=== PATIENT | female | born 1950 | race Caucasian/White ===

== ENCOUNTER 2018-01-18 09:47 | Day surgery (SDC) | payer BC ==
[2018-01-13 14:24] LABS: BASOPHILS # (AUTO) 0.1 X10'3 (0-0.2); BASOPHILS % (AUTO) 1.3 % (0-1); EOSINOPHILS # (AUTO) 0.2 X10'3 (0-0.9); HEMATOCRIT 39.2 % (35.0-45.0); HEMOGLOBIN 13.6 g/dl (12.0-16.0); LYMPHOCYTES # (AUTO) 1.5 X10'3 (1.1-4.8); MEAN CORPUSCULAR HEMOGLOBIN 33.6 PG (27.0-31.0); MEAN CORPUSCULAR HGB CONC 34.6 % (33.0-36.5); MEAN CORPUSCULAR VOLUME 97.2 FL (78-98); MEAN PLATELET VOLUME 8.2 FL (7.4-10.4); MONOCYTES # (AUTO) 0.7 X10'3 (0-0.9); MONOCYTES % (AUTO) 8.3 % (2-12); NEUTROPHILS # (AUTO) 5.6 X10'3 (1.8-7.7); NEUTROPHILS % (AUTO) 69.4 % (42-75); PLATELET COUNT 290 X10'3 (140-440); RED BLOOD COUNT 4.03 X10'6 (4.20-5.60); RED CELL DISTRIBUTION WIDTH 13.8 % (11.5-14.5); WHITE BLOOD COUNT 8.1 X10'3 (4.5-11.0)
[2018-01-13 14:31] LABS: ALBUMIN 3.8 G/DL (3.4-5.0); ANION GAP 8 (8-16); BLOOD UREA NITROGEN 23 MG/DL (7-18); BUN/CREATININE RATIO 16.2 (6.6-38.0); CALCIUM 9.1 MG/DL (8.5-10.1); CHLORIDE 100 MMOL/L (99-107); CREATININE 1.42 MG/DL (0.40-0.90); GLUCOSE 126 MG/DL (70-104); SODIUM 138 MMOL/L (135-145); TOTAL CARBON DIOXIDE 30.5 MMOL/L (24-32); eGFR 37 ML/MIN
[2018-01-13 14:32] LABS: INR 1.2 INR; PARTIAL THROMBOPLASTIN TIME 30 SECONDS (22-32)
[~2018-01-18] VITALS: Ht 165.1 cm; Wt 70.2 kg
[2018-01-18] MEDS ORDERED: normal saline 1000ml 1,000 ML IV SCH (10:05)
[2018-01-18] MEDS ORDERED: fentaNYL/PF 50MCG/1 ML 2ML syringe IV ONE (10:05)
[2018-01-18] MEDS ORDERED: MIDAZolam 5mg/ml 2ml vial IV ONE (10:05)
[2018-01-18] MEDS ORDERED: LEVO100T PO (10:08)
[2018-01-18] MEDS ORDERED: CHLO25TA2 PO (10:09)
[2018-01-18] MEDS ORDERED: RIVA20TA PO (10:10)
[2018-01-18] MEDS ORDERED: CARSR60C PO (10:12)
[2018-01-18] MEDS ORDERED: AMIO200T57 PO (10:13)
[2018-01-18] MEDS ORDERED: AMIO200T36 PO (10:18)
[2018-01-18] MEDS ORDERED: POTA20TA19 PO (10:21)
[2018-01-18 10:24] VITALS: BP 149/79
== END 2018-01-18 11:18 | disposition home or self-care (01) ==
LOC: SSTAY O 09:47
PROVIDERS: ATTEND Internal Medicine Interventional Cardiology
DX: I48.91 Unspecified atrial fibrillation (principal); I10 Essential (primary) hypertension; E03.9 Hypothyroidism, unspecified; M81.0 Age-related osteoporosis without current pathological fracture; Z79.899 Other long term (current) drug therapy; Z87.891 Personal history of nicotine dependence; Z88.8 Allergy status to other drugs, medicaments and biological substances; Z79.01 Long term (current) use of anticoagulants; Z53.8 Procedure and treatment not carried out for other reasons
CPT/HCPCS: 36415; 80048; 84132; 85025; 85610; 85730; 93005; J7030; A4620

== ENCOUNTER 2020-02-22 09:53 | Emergency (ER) | payer BC ==
[~2020-02-22] VITALS: Ht 165.1 cm; Wt 65.0 kg
[~2020-02-22 09:53] MED LIST: AMIO200T36 PO; CARSR60C PO; CHLO25TA2 PO; LEVO100T PO; POTA20TA19 PO; RIVA20TA PO
[2020-02-22] MEDS ORDERED: diltiazem 5mg/ml 5ml inj. IV ONE ×3 (10:12→10:15)
[2020-02-22] MEDS ORDERED: diltiazem-D5W 125mg/125ml 125 ML IV PRN (10:12)
[2020-02-22] MEDS ORDERED: normal saline 1000ML IV soln IVB ONE (10:15)
--- NOTE | 2020-02-22 10:21 | NUR ---
called pharmacy about cardizem gtt unavailable in [facility], stated will make and bring down once ready.
[2020-02-22] MEDS ORDERED: diltiazem-NS 100mg/100ml 100 ML IV PRN (10:23)
[2020-02-22 10:24] LABS: BASOPHILS # (AUTO) 0.1 X10'3 (0-0.2); BASOPHILS % (AUTO) 0.8 % (0-1); EOSINOPHILS # (AUTO) 0.2 X10'3 (0-0.9); EOSINOPHILS % (AUTO) 2.6 % (0-6); HEMATOCRIT 38.8 % (35.0-45.0); HEMOGLOBIN 12.8 g/dl (12.0-16.0); LYMPHOCYTES # (AUTO) 1.4 X10'3 (1.1-4.8); LYMPHOCYTES % (AUTO) 18.3 % (21-51); MEAN CORPUSCULAR HGB CONC 33.1 g/dL (33.0-36.5); MEAN CORPUSCULAR VOLUME 99.9 FL (78-98); MEAN PLATELET VOLUME 8.9 FL (7.4-10.4); MONOCYTES # (AUTO) 0.6 X10'3 (0-0.9); MONOCYTES % (AUTO) 8.1 % (2-12); NEUTROPHILS # (AUTO) 5.4 X10'3 (1.8-7.7); NEUTROPHILS % (AUTO) 70.2 % (42-75); PLATELET COUNT 242 X10'3 (140-440); RED BLOOD COUNT 3.89 X10'6 (4.20-5.60); RED CELL DISTRIBUTION WIDTH 13.3 % (11.5-14.5); WHITE BLOOD COUNT 7.7 X10'3 (4.5-11.0)
[2020-02-22] MEDS ORDERED: propofol 1000mg/100ml bottle 100 ML IV ONE (10:36)
[2020-02-22 10:42] LABS: ALANINE AMINOTRANSFERASE 72 U/L (12-78); ALBUMIN 3.3 G/DL (3.4-5.0); ALBUMIN/GLOBULIN RATIO 0.9 (1.1-1.5); ALKALINE PHOSPHATASE 83 IU/L (46-116); ANION GAP 12 (8-16); ASPARTATE AMINO TRANSFERASE 43 U/L (10-37); BILIRUBIN,TOTAL 0.8 MG/DL (0.1-1.0); BLOOD UREA NITROGEN 17 MG/DL (7-18); BUN/CREATININE RATIO 12.6 (6.6-38.0); CALCIUM 8.9 MG/DL (8.5-10.1); CHLORIDE 102 MMOL/L (99-107); CREATININE 1.35 MG/DL (0.40-0.90); GLUCOSE 152 MG/DL (70-104); POTASSIUM 4.3 MMOL/L (3.5-5.1); SODIUM 137 MMOL/L (135-145); TOTAL PROTEIN 7.1 G/DL (6.4-8.2); eGFR 39 ML/MIN
--- NOTE | 2020-02-22 11:11 | NUR ---
PROPOFOL 80MG GIVEN IVP BY DR AGGARWAL DURING CARDIOVERSION.
[2020-02-22 11:38] VITALS: BP 149/79
[2020-02-24] MEDS ORDERED: RYT225T PO (18:58)
[2020-02-24] MEDS ORDERED: SPIR25TA5 PO (18:58)
[2020-02-24] MEDS ORDERED: MONT10TA26 PO (18:58)
[2020-02-26] MEDS ORDERED: DRON400T2 PO (13:52)
[2020-02-26] MEDS ORDERED: CARCD120C PO (13:52)
== END 2020-02-22 11:53 | disposition home or self-care (01) ==
LOC: ER 09:54
DX: I48.91 Unspecified atrial fibrillation (principal); R94.30 Abnormal result of cardiovascular function study, unspecified; R42 Dizziness and giddiness; R06.02 Shortness of breath; Z72.89 Other problems related to lifestyle; Z88.8 Allergy status to other drugs, medicaments and biological substances; Z79.01 Long term (current) use of anticoagulants; Z79.899 Other long term (current) drug therapy
CPT/HCPCS: 36415; 71045; 80053; 83880; 85025; 85610; 92960; 93005; 96374; 99285; J2704; J7030; 84484; 94760; 96361; 99152; 99153; J3490

== ENCOUNTER 2022-08-04 10:36 | Day surgery (SDC) | payer BC ==
[2022-07-30 10:48] LABS: BASOPHILS # (AUTO) 0.1 X10'3 (0-0.2); BASOPHILS % (AUTO) 1.1 % (0-1); EOSINOPHILS # (AUTO) 0.1 X10'3 (0-0.9); EOSINOPHILS % (AUTO) 2.1 % (0-6); HEMATOCRIT 44.5 % (35.0-45.0); HEMOGLOBIN 14.6 g/dl (12.0-16.0); LYMPHOCYTES # (AUTO) 1.3 X10'3 (1.1-4.8); LYMPHOCYTES % (AUTO) 22.3 % (21-51); MEAN CORPUSCULAR HEMOGLOBIN 33.2 PG (27.0-31.0); MEAN CORPUSCULAR HGB CONC 32.9 g/dL (33.0-36.5); MEAN CORPUSCULAR VOLUME 101.1 FL (78-98); MEAN PLATELET VOLUME 7.6 FL (7.4-10.4); MONOCYTES # (AUTO) 0.4 X10'3 (0-0.9); MONOCYTES % (AUTO) 7.6 % (2-12); NEUTROPHILS # (AUTO) 3.8 X10'3 (1.8-7.7); NEUTROPHILS % (AUTO) 66.9 % (42-75); PLATELET COUNT 264 X10'3 (140-440); WHITE BLOOD COUNT 5.7 X10'3 (4.5-11.0)
[2022-07-30 11:00] LABS: APTT 37 SECONDS (22-32)
[2022-07-30 11:04] LABS: ALBUMIN 3.9 G/DL (3.4-5.0); ANION GAP 8 (8-16); BLOOD UREA NITROGEN 22 MG/DL (7-18); BUN/CREATININE RATIO 17.9 (6.6-38.0); CALCIUM 9.5 MG/DL (8.5-10.1); CHLORIDE 103 MMOL/L (99-107); CREATININE 1.23 MG/DL (0.40-0.90); GLUCOSE 102 MG/DL (70-104); POTASSIUM 4.8 MMOL/L (3.5-5.1); SODIUM 138 MMOL/L (135-145); TOTAL CARBON DIOXIDE 27.1 MMOL/L (24-32); eGFR 43 ML/MIN
[~2022-08-04] VITALS: Ht 165.1 cm; Wt 70.3 kg
[2022-08-04] VITALS (12 sets, daily range): BP systolic 133–163; BP diastolic 63–86
[~2022-08-04 10:36] MED LIST changes: -AMIO200T36 PO; +CARCD120C PO; -CARSR60C PO; -CHLO25TA2 PO; +DRON400T7 PO; +MONT-40 PO; -POTA20TA19 PO; +SPIR25TA5 PO
[2022-08-04] MEDS ORDERED: DRON400T6 PO (10:56)
[2022-08-04] MEDS ORDERED: DILT-103 PO (10:56)
[2022-08-04] MEDS ORDERED: fentaNYL/PF 50MCG/1 ML 2ML syringe IV ONE (11:00)
[2022-08-04] MEDS ORDERED: normal saline 1000ml 1,000 ML IV SCH (11:00)
[2022-08-04] MEDS ORDERED: MIDAZolam 1mg/ml 10ml vial IV ONE (11:00)
[2022-08-04] MEDS ORDERED: vitamin d3 PO (11:05)
[2022-08-04] MEDS ORDERED: VITE1000C PO (11:05)
[2022-08-04] MEDS ORDERED: calcium PO (11:05)
[2022-08-04] MEDS ORDERED: biotin PO (11:05)
== END 2022-08-04 14:20 | disposition home or self-care (01) ==
LOC: SSTAY O 10:36
PROVIDERS: ATTEND Student in an Organized Health Care Education/Training Program
DX: I48.91 Unspecified atrial fibrillation (principal); I10 Essential (primary) hypertension; E03.9 Hypothyroidism, unspecified; Z79.899 Other long term (current) drug therapy; M81.0 Age-related osteoporosis without current pathological fracture
CPT/HCPCS: 36415; 80048; 85025; 85610; 85730; 92960; 93005; J2250; J3010; J7030